=== PATIENT | male | born 1940 | race Caucasian/White ===

== ENCOUNTER 2022-08-05 03:47 | Emergency (ER) | payer OTHER, SELFPAY ==
[2022-08-05] VITALS (19 sets, daily range): BP systolic 148–188; BP diastolic 71–98; PULSE 95–100; RESP 8–18; TEMP 36.3; O2SAT 92–100; BMI 25.2
--- NOTE | 2022-08-05 03:56 | DI.RAD.S_ITS ---
PROCEDURE: XR CHEST 1V INDICATIONS: fall, neck pain TECHNIQUE: One view of the chest was acquired. COMPARISON: None. FINDINGS: Surgical changes and devices: None. Lungs and pleura: Lungs are clear. No pleural effusions or pneumothorax. Mediastinum: Widened appearance of mediastinum is likely due to AP technique. Heart size is normal. Bones and chest wall: No suspicious bony lesions. Overlying soft tissues appear unremarkable. IMPRESSION: No acute cardiopulmonary disease. No significant discrepancy with the shift boss radiology preliminary report. Dictated by: Cecile Mathews M.D. on 08/05/2022 at 8:02 Approved by: Cecile Mathews M.D. on 08/05/2022 at 8:03
--- NOTE | 2022-08-05 03:56 | DI.CT.S_ITS ---
PROCEDURE: CT CERVICAL SPINE WO CON INDICATIONS: fall, neck pain TECHNIQUE: Noncontrast 3 mm thick sections acquired from the skull base to the T4 level. Sagittal and coronal reformats were then constructed. For radiation dose reduction, the following was used: automated exposure control, adjustment of mA and/or kV according to patient size. COMPARISON: [facility], CT, CT HEAD/BRAIN WO CON, 08/05/2022, 4:34. FINDINGS: Image quality: Excellent. Bones: There is a fracture of the odontoid process with mild displacement and posterior angulation. There are fractures of the anterior and posterior arch of C1. There is mild displacement of the anterior C1 arch fracture and the right posterior C1 arch fracture, and no displacement in the. left posterior C1 arch fracture. Degenerative disc disease, moderate to severe at C3-C4, C4-C5, C5-C6 and C6-C7, mild to moderate at C2-C3. Bilateral facet arthropathy throughout the cervical spine, most pronounced at C2-C3. Visualized superior ribs are intact. Soft tissues: Prevertebral soft tissues are normal in thickness. No paravertebral hematomas. No apical pneumothoraces. IMPRESSION: 1. Mildly displaced odontoid fracture. 2. Fractures of the anterior and posterior arch of C1. No significant discrepancy with the night baker radiology preliminary report. Dictated by: Cecile Mathews M.D. on 08/05/2022 at 7:48 Approved by: Cecile Mathews M.D. on 08/05/2022 at 8:00
--- NOTE | 2022-08-05 03:56 | DI.CT.S_ITS ---
PROCEDURE: CT HEAD/BRAIN WO CON INDICATIONS: fall, neck pain TECHNIQUE: Noncontrast 4.5 mm thick angled axial sections acquired from the foramen magnum to the vertex, with coronal and sagittal reformats. For radiation dose reduction, the following was used: automated exposure control, adjustment of mA and/or kV according to patient size. COMPARISON: None. FINDINGS: Image quality: Excellent. CSF spaces: Basal cisterns are patent. No extra-axial fluid collections. The ventricles are symmetric in size and shape. Brain: No intracranial bleeds or masses. There is moderate cerebral volume loss with resultant ventricular and sulcal prominence. There are moderate periventricular and deep white matter chronic small vessel ischemic changes. There is intracranial internal carotid artery atherosclerosis. Skull and face: Calvarium and visualized facial bones appear intact, without suspicious lesions. Sinuses: Visualized sinuses and mastoids are clear. IMPRESSION: 1. No acute intracranial abnormalities. 2. Cerebral volume loss and chronic microvascular ischemic changes. No significant discrepancy with the edi analyst radiology preliminary report. Dictated by: Cecile Mathews M.D. on 08/05/2022 at 7:43 Approved by: Cecile Mathesw M.D. on 08/05/2022 at 7:45
--- NOTE | 2022-08-05 03:57 | ED_ITS ---
HPI - Fall General Chief Complaint: Fall Stated Complaint: GLF Time Seen by Provider: 08/05/22 03:47 Source: patient, EMS and old records reviewed Mode of arrival: EMS Limitations: no limitations History of Present Illness HPI Narrative: This is an 81-year-old male with complaint of fall. Patient states he got up this morning to go to the bathroom he has a recliner that sort of sits him up. Took about 2 steps and he states reach for his walker and fell forward landing on his right face and neck. Patient states he does not think that he got knocked out. He remembers starting to fall he does not remember landing. Patient states he did have left hip repair for fracture about a month and a half ago and had recently returned home from rehab. He is unsure of his medication list he does take insulin for diabetes, he states no prior heart attacks or strokes. He knows he is hypertension and cholesterol issues. He is unsure if he takes an aspirin or blood thinners. Patient states I take medications I do not ask what is given me I just take it. 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 States he is allergic to sulfa, no tobacco, alcohol or illicit. Patient denies headache, he does have some abrasions he is unsure of his tetanus status. He states he has neck pain that is improved but was quite intense. He defers anything for pain. He denies chest pain, shortness of breath, no thoracic or lower back pain. No abdominal pain. No loss of bowel or bladder control. No numbness, tingling or weakness. He states his hip is working well he has some residual pain from his surgery but not increase this evening. Medics note that patient was assisted up, he was quite tender on the right lateral neck and he was placed in C-spine and transported. They state that he did weightbear and take 1 or 2 steps at home. Lives at with family. Related Data Allergies Allergy/AdvReac Type Severity Reaction Status Date / Time No Known Drug Allergies Allergy Verified 08/05/22 04:08 Review of Systems Review of Systems ROS Unobtainable: All systems reviewed & are unremarkable except as noted in HPI and below Patient History Social History Smoking Status: Never smoker Exam Narrative Exam Narrative: GEN: C-collar prior to arrival. Patient appears in mild distress. HEAD: Patient has several abrasions on his forehead and nose, no lacerations, no raccoon/Mckeon sign. NECK: Nontender, painless range of motion, trachea midline Positive Nexus criteria, there is midline line tenderness, no distracting injury, altered mental status, neuro deficit, recent EtOH. EYES: PERRLA, EOMI ENT: External inspection normal, trachea is midline, TM's are normal no hemotypanum, Nares are clear, no septal hematoma, no dental or oral injury, airway is normal and with normal occlusion, No bony tenderness RESP: Chest is nontender and has symmetric movement, no ecchymosis, breath sounds are normal no crackles, wheezes or rales CVS: Heart sounds are normal, no murmur noted, No JVD. ABG/GI: Nontender, soft, normal bowel sounds, no distention, no organomegaly, pelvic rock is negative NEURO: Oriented AOx3, neuro is grossly intact, sensation and motor is normal all 4 extremities moving, cranial nerves II through XII are intact, GCS is 15 PSYCH: Normal mood and affect SKIN: Intact, warm and dry, no crepitus and without decubitus BACK: No CVA tenderness, no vertebral tenderness, no step-off's, no crepitus EXT: Atraumatic, hips are nontender, no pedal edema, normal color and temperature, normal range of motion of extremities with normal tendon exam, 2+ pulses in all four extremities Initial Vital Signs Initial Vital Signs: Vital Signs Pulse Rate 100 H 08/05/22 03:50 Blood Pressure 185/98 H 08/05/22 03:50 Pulse Oximetry 92 08/05/22 03:50 Scores GCS Rogers coma scale eye opening: Spontaneous Soheila coma scale verbal response: Orientated Soheila coma scale motor response: Obey commands Soheila coma scale total score: 15 Nexus Score for C-Spine Focal Neurologic deficit present: No Midline spinal tenderness present: Yes Altered level of conciousness present: No Intoxication present: No Distracting Injury Present: No Nexus Criteria for C-spine: 1 Course Orders Ordered: ED Orders 08/05/22 03:56 CT cervical spine wo con Stat CT head/brain wo con Stat Chest [XR chest 1V] Stat 08/05/22 04:05 CBC Auto Diff [Complete Blood Count AUTO DIFF] Stat CMP [Comprehensive Metabolic Panel] Stat PTT Partial Thromboplastin Albin Stat Prothrombin Time INR Stat 08/05/22 06:20 COVID19 -Nasal RAPID Stat 08/05/22 06:49 COVID19 -Nasal RAPID Stat Discontinued Medications Acetaminophen (Acetaminophen 325 Mg Tablet) 975 mg PO NOW ONE Stop: 08/05/22 05:38 Last Admin: 08/05/22 05:44 Dose: 975 mg Documented By: CARLOTA Diphtheria/Tetanus/Acell Pertussis (Tet,Diph,Pertuss(Acell),Vac/Pf 0.5 Ml Syringe) 0.5 ml IM .ONCE ONE Stop: 08/05/22 04:03 Last Admin: 08/05/22 04:10 Dose: 0.5 ml Documented By: CARLOTA Morphine Sulfate (Morphine 2 Mg/Ml Inj) 2 mg IV NOW ONE Stop: 08/05/22 04:53 Last Admin: 08/05/22 04:54 Dose: 2 mg Documented By: TESS Vital Signs Vital signs: Vital Signs - 8 hr 08/05/22 03:59 08/05/22 03:50 08/05/22 03:50 Temperature 97.3 F L Pulse Rate 95 H 100 H Respiratory Rate 18 Blood Pressure 185/98 H 185/98 H Pulse Oximetry 100 92 Oxygen Delivery Method Room Air 08/05/22 04:00 08/05/22 04:45 08/05/22 04:46 Temperature Pulse Rate 96 H 100 H 100 H Respiratory Rate 16 16 13 Blood Pressure Pulse Oximetry 100 99 99 Oxygen Delivery Method 08/05/22 04:46 08/05/22 05:00 08/05/22 05:01 Temperature Pulse Rate 97 H Respiratory Rate 8 L Blood Pressure 188/96 H 187/92 H Pulse Oximetry 99 Oxygen Delivery Method 08/05/22 05:01 08/05/22 05:30 08/05/22 05:31 Temperature Pulse Rate 98 H 95 H 95 H Respiratory Rate 13 14 13 Blood Pressure Pulse Oximetry 98 98 98 Oxygen Delivery Method 08/05/22 05:31 08/05/22 06:00 08/05/22 06:01 Temperature Pulse Rate 95 H 95 H Respiratory Rate 15 12 Blood Pressure 172/87 H Pulse Oximetry 96 97 Oxygen Delivery Method 08/05/22 06:01 08/05/22 06:22 08/05/22 06:22 Temperature Pulse Rate 98 H Respiratory Rate 14 Blood Pressure 171/89 H 172/87 H Pulse Oximetry 97 Oxygen Delivery Method 08/05/22 06:30 08/05/22 06:30 Temperature Pulse Rate 96 H Respiratory Rate 14 Blood Pressure 163/83 H Pulse Oximetry 96 Oxygen Delivery Method MDM - Fall Lab Data 08/05/22 04:05 08/05/22 04:05 Labs: Lab Results 08/05/22 08/05/22 08/05/22 Range/Units 04:05 04:05 04:05 WBC 7.9 (4.5-11.0) X10^3/uL RBC 4.03 L (4.5-5.9) X10^6/uL Hgb 13.4 L (13.5-17.5) g/dL Hct 37.9 L (41-53) % MCV 94.0 (80-100) fL MCH 33.2 (26-34) PG MCHC 35.3 (30-36) % RDW 13.3 (11.6-14.8) % Plt Count 236 (150-400) X10^3/uL Neut % (Auto) 81.7 H (50-75) % Lymph % (Auto) 9.9 L (25-40) % [place] % (Auto) 5.7 (3-14) % Eos % (Auto) 2.6 (2-4) % Baso % (Auto) 0.1 (0-2) % Neut # (Auto) 6400 (4642-8066) /uL Lymph # (Auto) 800 L (8716-5863) /uL [place] # (Auto) 400 (0-900) /uL Eos # (Auto) 200 (0-450) /uL Baso # (Auto) 0 (0-100) /uL PT 12.0 (10.1-12.7) SECONDS INR 1.0 (0.9-1.3) APTT 28 (26-36) SECONDS Sodium 135 L (137-145) mmol/L Potassium 3.6 (3.4-5.1) mmol/L Chloride 100 (98-107) mmol/L Carbon Dioxide 28 (22-32) mmol/L BUN 20 (9-20) mg/dL Creatinine 0.71 (0.66-1.25) mg/dL Estimated GFR > 60 (>60) mL/min BUN/Creatinine Ratio 28.2 H (6-22) Glucose 150 H (80-110) mg/dL Calcium 8.9 (8.4-10.2) mg/dL Total Bilirubin 0.9 (0.2-1.3) mg/dL AST 30 (17-59) IU/L ALT 25 (<50) IU/L Alkaline Phosphatase 112 (38-126) U/L Total Protein 7.0 (6.3-8.2) g/dL Albumin 3.9 (3.5-5.0) g/dL Globulin 3.1 (1.7-4.1) g/dL Albumin/Globulin Ratio 1.3 (1.0-2.8) SARS-CoV-2 (PCR) (Negative) 08/05/22 Range/Units 06:20 WBC (4.5-11.0) X10^3/uL RBC (4.5-5.9) X10^6/uL Hgb (13.5-17.5) g/dL Hct (41-53) % MCV (80-100) fL MCH (26-34) PG MCHC (30-36) % RDW (11.6-14.8) % Plt Count (150-400) X10^3/uL Neut % (Auto) (50-75) % Lymph % (Auto) (25-40) % [place] % (Auto) (3-14) % Eos % (Auto) (2-4) % Baso % (Auto) (0-2) % Neut # (Auto) (0471-9938) /uL Lymph # (Auto) (8924-0991) /uL [place] # (Auto) (0-900) /uL Eos # (Auto) (0-450) /uL Baso # (Auto) (0-100) /uL PT (10.1-12.7) SECONDS INR (0.9-1.3) APTT (26-36) SECONDS Sodium (137-145) mmol/L Potassium (3.4-5.1) mmol/L Chloride (98-107) mmol/L Carbon Dioxide (22-32) mmol/L BUN (9-20) mg/dL Creatinine (0.66-1.25) mg/dL Estimated GFR (>60) mL/min BUN/Creatinine Ratio (6-22) Glucose (80-110) mg/dL Calcium (8.4-10.2) mg/dL Total Bilirubin (0.2-1.3) mg/dL AST (17-59) IU/L ALT (<50) IU/L Alkaline Phosphatase (38-126) U/L Total Protein (6.3-8.2) g/dL Albumin (3.5-5.0) g/dL Globulin (1.7-4.1) g/dL Albumin/Globulin Ratio (1.0-2.8) SARS-CoV-2 (PCR) Negative (Negative) Imaging Data CT scan - head: Radiologist's Impression: No acute intracranial abnormality. CT - cervical spine: Radiologist's Impression: Minimally displaced transverse fracture of the dens. Mild dorsal displacement the tip of the dens. Minimally displaced fracture of the right posterior arch of C1 and right anterior arch of C1. Reversal of the normal cervical lordosis. Intervertebral disc space narrowing at all cervical levels with broad-based disc osteophyte complexes present and bilateral neural foraminal narrowing. Mult ilevel uncovertebral facet arthrosis. Mild central canal stenosis at C2-3 C3-4-C4-5 and C5-6. Prominent anterior osteophytes present at C3-4, C4-5, C5-6, and C6-7 with osseous fusion at C3 through C6. Chest x-ray: Radiologist's Impression: Chest x-ray is negative. MDM Narrative Medical decision making narrative: This is an 81-year-old male with sounds like mechanical ground level fall. Patient had neck pain on scene was C collared plan for head CT and C-spine based on age patient is unsure if he is anticoagulants aspirin or other thinners. He knows he takes medication daily but states other people fill his prescriptions. Chest x-ray. Patient did have recent hip surgery about a month and half but has good movement with no increased pain. Defers anything for pain right now he is unsure of his tetanus status. Patient was placed in [place] collar. Head CT is negative, C-spine shows dens and C1 fracture, patient chest x-ray is negative. He does not have any acute neurologic changes on examination he has good range of motion normal strength normal sensation. Patient was quite painful was given 2 mg of morphine this was quite sedating patient still conversant but very tired and fatigued afterwards. He had images pushed I spoke with Dr. Barber with neuro surge through [facility] and they accept for transfer. Discussed with patient they believe he is likely going to need surgical repair for unstable fracture and he is agreeable. Discussed with patient's family as well. All questions answered. Critical Care Time Critical Care Time Attestation: The high probability of a clinically significant, sudden or life threatening deterioration of the [neuro] system(s) required my full and direct attention, intervention and personal management. The aggregate critical care time was [] minutes. This time is in addition to time spent performing reported procedures but includes the following: [x] Data Review and interpretation [x] Patient assessment and monitoring of vital signs [x] Documentation [x] Medication orders and management Discharge Plan Departure Patient Disposition: [facility] Clinical Impression: Closed dens fracture, Closed fracture of first cervical vertebra, Fall from ground level
[2022-08-05] MEDS: TET,DIPH,PERTUSS(ACELL),VAC/PF 0.5 ML SYRINGE IM (04:10)
[2022-08-05] MEDS: MORPHINE 2 MG/ML INJ IV (04:54)
[2022-08-05] MEDS: ACETAMINOPHEN 325 MG TABLET 975 MG PO (05:44)
[2022-08-05 05:53] LABS: Add Manual Diff / Slide Review NO; Basophils Absolute Auto 0 /uL (0-100); Basophils Percent Auto 0.1 % (0-2); Eosinophils Absolute Auto 200 /uL (0-450); Eosinophils Percent Auto 2.6 % (2-4); Hematocrit 37.9 % (41-53); Hemoglobin 13.4 g/dL (13.5-17.5); Lymphocytes Absolute Auto 800 /uL (1100-4500); Lymphocytes Percent Auto 9.9 % (25-40); Mean Corpuscular HGB Conc 35.3 % (30-36); Mean Corpuscular Hemoglobin 33.2 PG (26-34); Monocytes Absolute Auto 400 /uL (0-900); Monocytes Percent Auto 5.7 % (3-14); Neutrophils Absolute Auto 6400 /uL (1500-7000); Neutrophils Percent Auto 81.7 % (50-75); Platelet Count 236 X10^3/uL (150-400); Red Blood Cell Count 4.03 X10^6/uL (4.5-5.9); Red Cell Distribution Width 13.3 % (11.6-14.8); White Blood Cell Count 7.9 X10^3/uL (4.5-11.0)
[2022-08-05 05:55] LABS: PTT Partial Thromboplastin Tim 28 SECONDS (26-36)
[2022-08-05 06:04] LABS: Alanine Aminotransferase 25 IU/L (<50); Albumin 3.9 g/dL (3.5-5.0); Albumin Globulin Ratio 1.3 (1.0-2.8); Alkaline Phosphatase 112 U/L (38-126); Aspartate Aminotransferase 30 IU/L (17-59); BUN Creatinine Ratio 28.2 (6-22); Bilirubin Total 0.9 mg/dL (0.2-1.3); Blood Urea Nitrogen 20 mg/dL (9-20); Calcium 8.9 mg/dL (8.4-10.2); Carbon Dioxide 28 mmol/L (22-32); Chloride 100 mmol/L (98-107); Estimated Glomerular Filt Rate > 60 mL/min (>60); Globulin 3.1 g/dL (1.7-4.1); Glucose 150 mg/dL (80-110); HEMOLYSIS < 15 (0-50); Potassium 3.6 mmol/L (3.4-5.1); Sodium 135 mmol/L (137-145)
[2022-08-05 06:39] LABS: COVID19 -Nasal RAPID Negative (Negative)
[2022-08-05] MEDS: MORPHINE 2 MG/ML INJ 1 MG IV (09:20)
== END 2022-08-05 09:42 | disposition short-term general hospital (02) ==
PROVIDERS: Emergency Provider Emergency Medicine
DX: S12.100A Unspecified displaced fracture of second cervical vertebra, initial encounter for closed fracture (principal); S12.000A Unspecified displaced fracture of first cervical vertebra, initial encounter for closed fracture; W18.30XA Fall on same level, unspecified, initial encounter; Z23 Encounter for immunization; Z20.822 Contact with and (suspected) exposure to COVID-19
CPT/HCPCS: 36415; 70450; 71045; 72125; 80053; 85025; 85610; 85730; 87635; 90471; 96374; 96376; 99284; C9803; 90715; J2270